=== PATIENT | male | born 1940 | race Caucasian/White ===

== ENCOUNTER 2018-03-20 06:00 | Observation (INO) | payer MEDICARE ==
[2018-03-20] MEDS ORDERED: Albuterol/Ipratropium NEB.SOL* Albuterol 2.5 MG/Ipratropium 0.5 MG 3 ML INH ONE (06:06)
--- NOTE | 2018-03-20 06:19 | ED ---
Shortness of Breath - HPI Summary HPI Summary: Pt. is a 77 y.o male who presents to the ER for a productive cough and SOB x several days. Pt. states he has a history of asbestosis. Pt. notes he has chronic SOB but it has been worse over the past few days. Pt. states he believes he has had a cold that has exacerbated his SOB. He does not take any pulmonary meds at home. He does not wear O2 at home. He denies CP, fever, abd. pain, VD. SOB is worse when lying flat and with exertion. Symptoms are moderate in severity. - History of Current Complaint Chief Complaint: EDShortnessOfBreath Time Seen by Provider: 03/20/18 06:06 Hx Obtained From: Patient, Family/Campus Administrative Assistant - Allergy/Home Medications Allergies/Adverse Reactions: Allergies Allergy/AdvReac Type Severity Reaction Status Date / Time No Known Allergies Allergy Verified 03/20/18 06:10 Home Medications: Home Medications Aspirin 81 mg CHEW TAB* [Aspirin Low Dose TAB*] 81 mg PO DAILY 03/20/18 [ History Confirmed 03/20/18] Carvedilol TAB* [Coreg TAB*] 6.25 mg PO BID 03/20/18 [History Confirmed 03/20/18 ] Glimepiride 2 mg PO DAILY 03/20/18 [History Confirmed 03/20/18] Lisinopril/Hydrochlorothiazide [Zestoretic 20-25 mg-] 1 tab PO DAILY 03/20/18 [ History Confirmed 03/20/18] predniSONE TAB* [Deltasone TAB*] 10 mg PO DAILY 03/20/18 [History Confirmed ] PMH/Surg Hx/FS Hx/Imm Hx Previously Healthy: Yes Infectious Disease History: No Infectious Disease History: Denies: Traveled Outside the [place] in Last 30 Days - Social History Occupation: Retired Lives: With Family Review of Systems Constitutional: Negative Negative: Fever, Chills Eyes: Negative ENT: Negative Negative: Palpitations, Chest Pain Positive: Shortness Of Breath, Cough Gastrointestinal: Negative Negative: Abdominal Pain, Vomiting, Diarrhea, Nausea Genitourinary: Negative Positive: Arthralgia Neurological: Negative All Other Systems Reviewed And Are Negative: Yes Physical Exam Triage Information Reviewed: Yes Vital Signs On Initial Exam: Initial Vitals Temp Pulse Resp BP Pulse Ox 98.3 F 96 30 175/101 86 0429/18 06:06 03/20/18 06:06 03/20/18 06:06 03/20/18 06:06 03/20/18 06:06 Vital Signs Reviewed: Yes Appearance: Positive: Ill-Appearing - Pt. sitting on side of bed. Mildly dyspneic when speaking. present. Skin: Positive: Warm, Dry Head/Face: Positive: Normal Head/Face Inspection Eyes: Positive: Normal Neck: Positive: Supple Respiratory/Lung Sounds: Positive: Other - Productive cough noted. Diminished breath sounds throughout. No accessory muscle use. Cardiovascular: Positive: Normal, RRR Musculoskeletal: Positive: Other - No pitting edema.. Negative: Edema Left, Edema Right Neurological: Positive: Normal, CN Intact II-III Psychiatric: Positive: Normal Diagnostics - Vital Signs Vital Signs Temp Pulse Resp BP Pulse Ox 03/20/18 06:06 98.3 F 96 30 175/101 86 - Laboratory Result Diagrams: 03/20/18 06:13 03/20/18 06:13 Lab Statement: Any lab studies that have been ordered have been reviewed, and results considered in the medical decision making process. Course/Dx - Course Course Of Treatment: Patient presenting to the emergency department for exacerbation of shortness of breath and productive cough. He is afebrile. Oxygen saturation on arrival is 86% on room air which is low. Patient was placed on monitor and IV was placed. Nasal cannula was placed. Started on DuoNeb treatment. Pending labs and chest x-ray. EKG done at 0614 shows a sinus rhythm of 69bpm, left axis deviation, prolonged UT interval, no ST elevation of depression. CBC is unremarkable. CMP shows a mildly elevated glucose. Troponin is mildly elevated at 0.04. Negative BNP. Chest x-ray reviewed by myself and Dr. Cruz and is concerning for right lower lobe infiltrate versus atelectasis. Clinically pneumonia would fit patient's presentation. On reexamination he is breathing easier after DuoNeb and is moving air better. Will start on Levaquin. Hospitalist was consulted, Dr. Ward , and he has accepted the patient to his service. Pt. has remained stable in the emergency department. - Diagnoses Differential Diagnosis/HQI/PQRI: Positive: Asthma, Bronchitis, CHF, COPD Exacerbation, MS, Pneumonia, Pneumothorax, Pulmonary Embolism, Pulmonary Edema Provider Diagnoses: Hypoxia, Pneumonia, Elevated troponin I level Discharge - Sign-Out/Discharge Documenting (check all that apply): Discharge/Admit/Transfer - Discharge Plan Condition: Stable Disposition: ADMITTED TO [facility] Referrals: Adam Golden MD [Primary Care Provider] - - Billing Disposition and Condition Condition: STABLE Disposition: [facility]
[2018-03-20 06:34] LABS: ABS Basophils 0 10^3/ul (0-0.2); ABS Eosinophils 0.1 10^3/ul (0-0.6); ABS Lymphocytes 0.8 10^3/ul (1.0-4.8); ABS Monocytes 0.9 10^3/ul (0-0.8); ABS Neutrophils 8.2 10^3/ul (1.5-7.7); ABS Nucleated RBC 0 10^3/ul; Eosinophil % 0.8 % (0-6); Hematocrit 43 % (42-52); Hemoglobin 15.4 g/dl (14.0-18.0); Mean Corpuscular HGB Conc 36 g/dl (31-36); Mean Corpuscular Hemoglobin 36 pg (27-31); Mean Corpuscular Volume 101 fL (80-94); Mean Platelet Volume 8.4 um3 (7.4-10.4); Nucleated Red Blood Cells % 0; Platelet Count 128 10^3/ul (150-450); Red Blood Count 4.28 10^6/ul (4.0-5.4); Red Cell Distribution Width 13 % (10.5-15); White Blood Count 10.1 10^3/ul (3.5-10.8)
[2018-03-20] MEDS ORDERED: Levofloxacin 500 MG IVPREMIX(* 500 MG/100 ML BAG IVPB ONE (06:47)
[2018-03-20 06:57] LABS: EGFR Non-African American 76.9 (>60)
[2018-03-20] MEDS ORDERED: cefTRIAXone(*) 1 GM in NS 0.9% 50 ML* 50 ML IVPB SCH (08:38)
[2018-03-20] MEDS ORDERED: Spiriva Inhaler DEVICE* 1 EACH DEVICE SCH (09:00)
[2018-03-20] MEDS: Carvedilol TAB* 6.25 MG PO SCH ×2 (09:15→20:33)
[2018-03-20] MEDS: methylPREDNISolone SOD 40 MG* 1 ML VIAL IV SCH ×2 (09:16→20:34)
[2018-03-20] MEDS: Lisinopril TAB* 10 MG PO SCH (09:16)
[2018-03-20] MEDS: Aspirin 81 mg CHEW TAB* 81 MG TAB.CHEW PO SCH (09:16)
[2018-03-20] MEDS: Hydrochlorothiazide TAB* 25 MG PO SCH (09:16)
[2018-03-20] MEDS: Enoxaparin(*) 40 MG/0.4 ML SYR SUBCUT SCH (09:16)
[2018-03-20] MEDS: Azithromycin IV(*) 500 MG in NS 0.9% 250 ML* 250 ML IVPB SCH (09:17)
--- NOTE | 2018-03-20 09:28 | RAD ---
Indication: Cough. Dyspnea. Comparison: July 12, [address] Technique: Upright AP 0641 hours Report: Elevated lung volumes and mild prominence of interstitial markings. No focal pulmonary lesion, compelling alveolar consolidation, pleural effusion, pneumothorax. Mild cardiomegaly. Unremarkable central pulmonary vasculature and mediastinal contours. IMPRESSION: Stigmata of potential chronic obstructive pulmonary disease. No acute cardiopulmonary process evident.
[2018-03-20] MEDS ORDERED: Albuterol/Ipratropium NEB.SOL* Albuterol 2.5 MG/Ipratropium 0.5 MG 3 ML INH PRN (10:00)
[2018-03-20] MEDS ORDERED: Acetaminophen TAB* 325 MG PO PRN (10:20)
[2018-03-20] MEDS: Tiotropium CAP.INH* CAP.INH/18 MCG (USE ORDER SET !) INH SCH (11:00)
[2018-03-20] MEDS: cefTRIAXone(*) 1 GM in NS 0.9% 50 ML* 50 ML IVPB SCH (11:01)
[2018-03-20] MEDS: Mometasone/Formoter 200/5 MDI INH SCH ×2 (11:01→21:41)
[2018-03-20] MEDS: Multivitamins/Minerals TAB PO SCH (11:09)
[2018-03-20] MEDS: Thiamine TAB* 100 MG TAB PO SCH (11:09)
[2018-03-20] MEDS: Folic Acid TAB* 1 MG PO SCH (11:09)
[2018-03-20 11:29] LABS: Urine Appearance Clear; Urine Blood Negative (Negative); Urine Color Yellow; Urine Ketones Negative (Negative); Urine Protein Negative (Negative); Urine Urobilinogen Negative (Negative)
--- NOTE | 2018-03-20 12:01 | HP ---
HISTORY AND PHYSICAL: DATE OF ADMISSION: 03/20/18 ADMITTING PROVIDER: Dwight Ward MD PRIMARY CARE PROVIDER: Aura Calvillo. CHIEF COMPLAINT: Progressive shortness of breath and productive cough. HISTORY OF PRESENT ILLNESS: Cale Ryan is a 77-year-old male with past medical history of asbestosis; approximately [id number] former smoker; hypertension; non- insulin-dependent diabetes mellitus; polymyalgia rheumatica, on chronic steroids, who presents with few weeks of progressively worse respiratory status. He states he is chronically short of breath, chronically has productive yellow green cough for the last 10 years, but both of these have been getting worse over the last 4 to 5 days. He had a really bad day a week prior to admission and then again this morning, felt like he was very short of breath. Denies any fevers, may have had slight chills night prior to admission as he asked for a blanket. He has been around with great grandchildren and grandchildren, who had some complaints of sickness, but mostly concern for food poisoning in the granddaughter. He says he chronically wheezes. He last saw a roll wrapper 10 to 15 years ago, who had diagnosed him with asbestosis and had pulmonary function tests at that time. He has been not on any inhalers currently. Formerly had been on 1, but due to rising cost, he stopped it. Last saw Dr. Golden about a year ago, got blood work about 2 weeks ago to check his A1c, which he reports approximately 6. 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 He does not follow up with any specialist in the area. Recently moved back to [place] from [place]. Denies any chest pain, chest tightness, abdominal pain, headaches, urinary frequency, dysuria, diarrhea. He slept in a chair for the last 2 nights because his shortness of breath was worse. Usually, he is able to sleep on his side without any additional pillows, but never on his back or abdomen. The shortness of breath is chronic with both rest and exertion. In the emergency room, he got 0.5 g of Levaquin and was referred to hospitalist service for admission. Of note, he was saturating 86% on room air, had a troponin at 0.04, normal lactic acid, normal BNP, no leukocytosis. He was afebrile initially, reportedly now has had fever of 100.4 after the Levaquin. He also got DuoNeb in the emergency room. The patient denies any pain behind his legs and calves, any recent long travel or immobilization. PAST MEDICAL HISTORY: Asbestosis, likely COPD, hypertension, non-insulin- dependent diabetes mellitus, polymyalgia rheumatica, former smoker, daily alcohol drinker. PAST SURGICAL HISTORY: Cholecystectomy, 2005; appendectomy, age 15. MEDICATIONS: Include: 1. Aspirin 81 mg daily. 2. Prednisone 10 mg daily. 3. Lisinopril/hydrochlorothiazide (Zestoretic 20/25 mg daily). 4. Glimepiride 2 mg p.o. daily. 5. Carvedilol 6.25 mg p.o. b.i.d. ALLERGIES: OXYCODONE (altered mental status). FAMILY HISTORY: Father of massive heart attack at age 54, mother at age 69 of COPD. Brother had AFib, diabetes, and heart issues. Sister with COPD and diabetes mellitus. Two other brothers including the one above also with asbestosis. 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 Quit smoking 30 years ago. He smoked for 20 years between 2 and 4 packs per day. Lives in [place] with his , who is his medical surrogate, Radhika Ryan. He desires to be a DNR/DNI. He has never filled out [employer] paperwork before. REVIEW OF SYSTEMS: A complete 14-point review of systems is negative except as per HPI. He does attest to some chronic wheezing. PHYSICAL EXAMINATION GENERAL APPEARANCE: No acute distress. Sitting in [facility]. VITAL SIGNS: Temperature 98.3, reportedly next was 100.4; heart rate 69 to 81; respiratory rate initially 30, currently 22; oxygen sat 86% on room air, improved to 96% on 4 L; blood pressure initially 175/101, currently 153/63. HEENT: Normocephalic, atraumatic. Pupils equally round and reactive to light. Extraocular motions intact. No scleral icterus. Moist mucous membranes. Dentition poor. No cervical lymphadenopathy. NECK: Supple. PULMONARY: No rhonchi or rales appreciated, slightly distant breath sounds. No gross wheezing. CARDIOVASCULAR: Regular rate and rhythm. No murmurs, rubs, or gallops. ABDOMEN: Soft, nontender, distended/obese. No rebound, no guarding. No Borja 's sign. EXTREMITIES: Warm, well perfused. No peripheral edema. NEURO: Cranial nerves II through XII intact. Frame Wirer strength 5/5. Hip flexion 5 /5. Dorsiflexion, plantar flexion 5/5. Sensation is intact except in right lateral anterior thigh. SKIN: No lesions. No rashes. DIAGNOSTIC STUDIES/LAB DATA: White count 10.1, hemoglobin 15.4, hematocrit 43 , platelets 128. MCV 101. Sodium 137, potassium 3.6, chloride 98, carbon dioxide 29, BUN 24, creatinine 0.95, glucose 174, lactic acid 1.7. Total bili 1.10, AST 28, ALT 35, alk phos 37. Troponin 0.04. CRP 31.6. BNP 65. Albumin 4.1. Influenza swab is negative. Imaging: Chest x-ray demonstrated slight hazy, well-defined, left costophrenic angle, difficult to exclude slight infiltrate on the right lower lung. EKG with Q waves in III, aVF, and V1; poor R-wave progression; prolonged WV interval at 289; left axis deviation; no ST elevations or depressions. ASSESSMENT AND PLAN: Cale Ryan is a 77-year-old male with past medical history of chronic shortness of breath secondary to likely chronic obstructive pulmonary disease and asbestosis, off any pulmonary meds for a decade; hypertension; non- insulin-dependent diabetes; polymyalgia rheumatica, on chronic steroids, presenting with acute on chronic shortness of breath and hypoxic respiratory failure. Suspected chronic obstructive pulmonary disease exacerbation versus early pneumonia, adding a procalcitonin level. He has normal lactic acid no leukocytosis, reportedly spiking a fever now to 100.4, notably after the Levaquin he got in the emergency room. We will follow up the blood culture, add a sputum culture, get streptococcus and legionella urine antigens, get a UA with reflex urine culture as necessary. I am going to change his Levaquin to ceftriaxone and azithromycin. He is normotensive to hypertensive. I am going to continue his antihypertensives including lisinopril 20, hydrochlorothiazide 25, and Coreg 6.25 mg p.o. b.i.d. for his hypertension. I am going to give him Solu-Medrol 40 mg IV q.12 hours for potential chronic obstructive pulmonary disease exacerbation. We will continue DuoNebs. Start Dulera and Spiriva and he will need a Pulmonary consultation as an outpatient at the very least given his significant lung history. Continue DuoNebs. He is being admitted to observation status. He is a DNR/DNI. We have to update the [employer] form. His medical surrogate is Radhika Ryan, his . For his sea-lviylkw-umjwdpvjh diabetes mellitus, I will hold his glimepiride. We will get q.a.c., h.s. fingersticks with low-dose sliding scale. For DVT prophylaxis, he is high risk. Lovenox 40 mg daily. Continue aspirin 81 mg daily. For his elevated troponin, we will trend that q.4 hours x2 or until peaks. Denies any chest pain or chest tightness. We will continue him on telemetry. [id number]/[facility] #: [id number] ANNETTE
[2018-03-20] MEDS ORDERED: Dextrose 50% Syringe 50 ML* 25 GM/50 ML SYRINGE IV PUSH PRN (12:23)
[2018-03-20] MEDS: Insulin LISPRO* 1 UNITS UNIT SUBCUT SCH ×3 (13:55→20:34)
[2018-03-21 07:27] LABS: EGFR Non-African American 82.9 (>60)
[2018-03-21] MEDS: Mometasone/Formoter 200/5 MDI INH SCH (08:47)
[2018-03-21] MEDS: Tiotropium CAP.INH* CAP.INH/18 MCG (USE ORDER SET !) INH SCH (08:47)
[2018-03-21 09:24] LABS: ABS Basophils 0 10^3/ul (0-0.2); ABS Eosinophils 0 10^3/ul (0-0.6); ABS Lymphocytes 0.6 10^3/ul (1.0-4.8); ABS Monocytes 0.5 10^3/ul (0-0.8); ABS Neutrophils 9.3 10^3/ul (1.5-7.7); ABS Nucleated RBC 0 10^3/ul; Eosinophil % 0 % (0-6); Hematocrit 41 % (42-52); Hemoglobin 14.9 g/dl (14.0-18.0); Lymphocyte % 5.9 % (25-47); Mean Corpuscular HGB Conc 36 g/dl (31-36); Mean Corpuscular Hemoglobin 37 pg (27-31); Mean Corpuscular Volume 101 fL (80-94); Mean Platelet Volume 8.1 um3 (7.4-10.4); Nucleated Red Blood Cells % 0; Platelet Count 133 10^3/ul (150-450); Red Blood Count 4.09 10^6/ul (4.0-5.4); Red Cell Distribution Width 13 % (10.5-15); White Blood Count 10.5 10^3/ul (3.5-10.8)
[2018-03-21] MEDS: methylPREDNISolone SOD 40 MG* 1 ML VIAL IV SCH (09:31)
[2018-03-21] MEDS: Azithromycin IV(*) 500 MG in NS 0.9% 250 ML* 250 ML IVPB SCH (09:32)
[2018-03-21] MEDS: Aspirin 81 mg CHEW TAB* 81 MG TAB.CHEW PO SCH (09:34)
[2018-03-21] MEDS: Folic Acid TAB* 1 MG PO SCH (09:34)
[2018-03-21] MEDS: Thiamine TAB* 100 MG TAB PO SCH (09:34)
[2018-03-21] MEDS: Carvedilol TAB* 6.25 MG PO SCH (09:34)
[2018-03-21] MEDS: Multivitamins/Minerals TAB PO SCH (09:34)
[2018-03-21] MEDS: Hydrochlorothiazide TAB* 25 MG PO SCH (09:34)
[2018-03-21] MEDS: Lisinopril TAB* 10 MG PO SCH (09:34)
[2018-03-21] MEDS: Enoxaparin(*) 40 MG/0.4 ML SYR SUBCUT SCH (09:46)
[2018-03-21] MEDS: Insulin LISPRO* 1 UNITS UNIT SUBCUT SCH ×2 (09:46→13:01)
[2018-03-21] MEDS: cefTRIAXone(*) 1 GM in NS 0.9% 50 ML* 50 ML IVPB SCH (11:10)
[2018-03-21 12:31] VITALS: BP 129/66
--- NOTE | 2018-03-22 04:46 | DS ---
DISCHARGE SUMMARY: DATE OF ADMISSION: 03/20/18 DATE OF DISCHARGE: 03/21/18 ADMITTING AND ATTENDING PHYSICIAN: Dwight Ward MD. PRIMARY CARE PROVIDER: Adam Golden MD, [place]. CHIEF COMPLAINT: Progressive shortness of breath with productive cough. PRINCIPAL DIAGNOSES: 1. Chronic obstructive pulmonary disease exacerbation. 2. History of asbestosis. 3. Acute hypoxic respiratory failure. HISTORY OF PRESENT ILLNESS: Cale Ryan is a 77-year-old male with past medical history of asbestosis, former smoker approximately 50-pack years, non- insulin- dependent diabetes mellitus, polymyalgia rheumatica, chronic prednisone presents with few weeks of progressively worse respiratory status, though he is chronically short of breath and chronically has productive yellow green productive cough for approximately 10 years; both of these have worsened over the last 4 to 5 days. He denied any fevers, but had slight chills the night prior to admission. He last saw a clay molder 10 to 15 years prior to admission. One was involved with a law suit, now carries the diagnosis of asbestosis. Probably he had been 1 inhaler, but due to rising cost, he stopped taking it. In the emergency room, he was noted to be hypoxic and tachypneic, satting 86% on room air. He had chest x-ray which did not show signs of infiltrates, but had stigmata of COPD. He got Levaquin in the emergency room and was referred to the hospitalist service for admission for COPD and hypoxic respiratory failure. His troponin was 0.04, peaked at 0.05. He was without ischemic changes on EKG. He felt much better by the morning of hospital day # 2. He was also treated with Solu-Medrol 40 mg IV q. 12. He was started on Spiriva and Dulera, DuoNebs p.r.n., but we did not use those. He was given Ceftriaxone and azithromycin and then discharged on Levaquin. His sputum culture is pending. On Gram stain it had 4+ gram-positive cocci in chains resembling strep. His urinary antigens for legionella and Streptococcus pneumoniae were negative. Blood cultures were negative x1 day. He was ambulated on hospital day #2, required 1 L of oxygen with ambulation given desaturations to 87% and this was arranged through [facility]. He was recommended to follow up with a new clay molder in the area and given a referral to Dr. Dee. He was initially discharged with Dulera and Spiriva, but got a call from his pharmacy that these were not on formulary and he was given instead prescription for Symbicort and Incruse Ellipta, also discharged on a prednisone taper. His procalcitonin was 0.1. He decided to be a DNR and filled out paperwork stating as such with a [employer] form. He should follow up with primary care about his blood sugars which were elevated in the mid 200 range likely exacerbated by the steroids. DISCHARGE MEDICATIONS: Include: 1. Albuterol (new). 2. Ventolin inhaler 1 to 2 puffs q. 6 hours p.r.n. 3. Aspirin 81 mg daily. 4. Coreg 6.25 mg p.o. b.i.d. 5. Folic acid 1 mg p.o. daily (new). 6. Glimepiride 2 mg p.o. daily. 7. Levaquin 750 mg p.o. daily for 4 days. 8. Lisinopril/hydrochlorothiazide 1 tab p.o. daily 20/25 mg. 9. Theragran multivitamin p.o. daily (new). 10. Prednisone 40 mg for 3 days, 30 mg for 3 days, 20 mg for 3 days, then resume his 10 mg daily. 11. Symbicort 2 puffs twice daily. 12. Incruse Ellipta 1 inhalation daily. 13. Thiamine 100 mg p.o. daily. DISCHARGE DIET: Carbohydrate consistent heart healthy, unchanged. ACTIVITY LEVEL: No restrictions. He is still requiring 1 L with ambulation. FOLLOWUP: Please follow up with Dr. Golden within 3 to 5 days of discharge. He has an appointment scheduled March 29 at 10 a.m. Referral also given also to Dr. Connie Dee within 1 to 2 weeks. The patient was advised to avoid second hand smoke (his still smokes, but says she does it outside on the porch). The patient was also advised to moderate his alcohol intake, given his daily use of 3 to 4 a day. TIME SPENT: Time spent on discharge 35 minutes. [id number]/[facility] #: [id number] ANNETTE
== END 2018-03-21 16:35 | disposition home or self-care (01) ==
LOC: ED 06:00 → MED 08:17
PROVIDERS: ADMIT Internal Medicine; ATTEND Internal Medicine
DX: R06.02 Shortness of breath (principal); R05 Cough; Z88.0 Allergy status to penicillin; Z87.891 Personal history of nicotine dependence; I10 Essential (primary) hypertension; E11.9 Type 2 diabetes mellitus without complications; Z79.82 Long term (current) use of aspirin
CPT/HCPCS: 36415; 71045; 80048; 80053; 81003; 83605; 83880; 84145; 84484; 85025; 86140; 87040; 87070; 87205; 87502; 87899; 93005; 94640; 94760; 96374; 99284; A9270-GY; G0378; G8978-GP-CI; G8979-GP-CI; G8980-GP-CI; J0456; J0696; J1650; J1956; J2920